=== PATIENT | female | born 1960 ===

== ENCOUNTER 2025-05-19 15:01 | Outpatient (AMB) | payer BC, SELFPAY ==
--- OUTSIDE RECORDS SUMMARY | 2025-05-19 17:10 | XMS_ITS | Clinical Summary ---
Author Organization 299 [facility] Address [address] [place] [address] Phone Care Team Providers Care Assistant Family Teacher Name Role Phone Andressa Johnson MD Primary Care Provider [phone] Social History Tobacco Use Types Packs/Day Years Used Date Smoking Tobacco: Never Assessed Comments No Sex and Gender Information Value Date Recorded Sex Assigned at Female 09/29/2024 10:16 AM EST Legal Sex Female 2:55 PM EST Gender Identity Female 09/29/2024 10:16 AM EST Sexual Orientation Straight 09/29/2024 10 :16 AM EST Obstetrics History Para Term AB IAB SAB Ectopic Multiple Livin g Live Births 3 Last Filed Vital Signs Vital Sign Reading Time Taken Comments Blood Pressure 137/84 11/05/2022 2:06 PM EST Sit ting R Arm Pulse 70 11/05/2022 2:06 PM EST Temperature - - Respiratory Rate - - Oxygen Saturation - - Inhaled Oxygen Concentration - - Weight 101 kg (223 lb) 10/17/2024 7:15 AM EST Height 175.3 cm (5' 9 ) 10/17/2024 7:15 AM EST Body Mass Index 32.93 10/17/2024 7:15 AM EST Plan of Treatment Health Maintenance Due Date Last Done Comments DTaP,Tdap,and Td Vaccines (1 - Tdap) 1979 Pneumococcal Vaccine: 50+ Years (1 of 1 - PCV) 2010 Zoster Vaccines (1 of 2) 2010 Colorectal Cancer Screening: Colonoscopy 08/15/2022 HIV Screening 08/15/2022 Hepatitis C Screening 08/15/2022 Social Influencers of Health Screening 08/15/2022 COVID-19 Vaccine ( - season) 2024 Depression Screening 09/16/2024 Influenza Vaccine (#1) 2025 Breast Cancer Screening 10/17/2026 10/17/19, 10/14/2023, 10/08/2022, Additional history exists Cervical Cancer Screening: Pap Smear 09/28/2027 09/28/2024 RSV Immunization Adult Patients (1 - 1-dose 75+ series) 2035 HIB Vaccines Aged Out No longer eligi ble based on patient's age to complete this topic HPV Vaccines Aged Out No longer eligi ble based on patient's age to complete this topic Hepatitis A Vaccines Aged Out No long er eligible based on patient's age to complete this topic Hepatitis B Vaccines Aged Out No long er eligible based on patient's age to complete this topic IPV Vaccines Aged Out No longer eligi ble based on patient's age to complete this topic MMR Vaccines Aged Out No longer eligi ble based on patient's age to complete this topic Meningococcal ACWY Vaccine Aged Out N o longer eligible based on patient's age to complete this topic Meningococcal B Vaccine Aged Out No l onger eligible based on patient's age to complete this topic RSV Immunization Patients Under 20 months Aged Out No longer eligible based on patient's age to complete this topic Varicella Vaccines Aged Out No longer eligible based on patient's age to complete this topic Procedures Procedure Name Priority Date/Time Associated Diagnosis Comments MG MAMMO DIGITAL SCREENING W EMERSON BILAT Routine 10/17/2024 7:22 AM EST Encounter for screening mammogram for malignant neoplasm of breast PAP SMEAR Routine 09/28/2024 12:00 AM EST Encounter for gynecological examination (general) (routine) without abnormal findings from Last 3 Months or Most Recently Relevant to Health Maintenance Results * MG Mammo Digital Screening w Emerson bilat (10/17/2024 7:22 AM EST) Anatomical Region Laterality Modality Breast Bilateral Mammography 10/19/2024 7:54 AM EST Impressions 10/19/2024 7:56 AM EST No evidence of breast malignancy. BI-RADS CATEGORY: 1 - NEGATIVE RECOMMENDATION: Screening bilateral mammogram is recommended in 1 year. Mammo Location: [facility], [address] [place] [address], [address], . -------- FINAL REPORT -------- Dictated By: Sulema Forbes Dictated Date: 10/19/2024 07:54 ET Assigned Physician: Sulema Forbes Reviewed and Electronically Signed By: Sulema Forbes Signed Date: 10/19/2024 07:56 ET Workstation ID: [id number] Transcribed By: Self Edit Transcribed Date: 10/19/2024 07:54 ET Narrative 10/19/2024 7:56 AM EST CLINICAL: 64 years old, Female, routine annual exam. COMPARISON: 10/12/2023, 10/06/2022, 09/30/2021, 08/28/2020 and 09/12/2019 TECHNIQUE: Bilateral MLO and CC views were obtained digitally with 3-D mammogram (digital breast tomosynthesis). Computer-aided detection was utilized in evaluation of this exam (CAD). FINDINGS: There is no evidence of suspicious mass or architectural distortion. No worrisome calcifications are evident. There has been no significant change from prior exam(s). BREAST DENSITY: B - There are scattered areas of fibroglandular density. Procedure Note Sulema Forbes MD - 10/19/2024 CLINICAL: 64 years old, Female, routine annual exam. COMPARISON: 10/12/2023, 10/06/2022, 09/30/2021, 08/28/2020 and 09/12/2019 TECHNIQUE: Bilateral MLO and CC views were obtained digitally with 3-Dmammogram (digital breast tomosynthesis). Computer-aided detection wasutilized in evaluation of this exam (CAD). FINDINGS: There is no evidence of suspicious mass or architectural distortion. Noworrisome calcifications are evident. There has been no significantchange from prior exam(s). BREAST DENSITY: B - There are scattered areas of fibroglandular density. IMPRESSION: No evidence of breast malignancy. BI-RADS CATEGORY: 1 - NEGATIVE RECOMMENDATION: Screening bilateral mammogram is recommended in 1 year. Mammo Location: [facility], [address] [place] [address], [address], . -------- FINAL REPORT -------- Dictated By: Sulema Forbes Dictated Date: 10/19/2024 07:54 ET Assigned Physician: Sulema Forbes Reviewed and Electronically Signed By: Sulema Forbes Signed Date: 10/19/2024 07:56 ET Workstation ID: [id number] Transcribed By: Self Edit Transcribed Date: 10/19/2024 07:54 ET us Koki Soria MD IMG BI PROCEDURES Final Result * Pap smear (09/28/2024 12:00 AM EST) Interpretation Negative for intraepithelial lesion or malignancy 10/02/2024 8:19 AM [facility] General Categorization Negative 10/02/2024 8:19 AM [facility] Other Findings Atrophy 10/02/2024 8:19 AM [facility] Specimen Adequacy Satisfactory for evaluation 10/02/2024 8:19 AM [facility] Pap Methodology Liquid Based Pap Test 10/02/2024 8:19 AM [facility] Disclaimer The Pap test is a screening test which carries an inherent false negative rate. These test results should be correlated with the patient's clinical findings and history. This Pap test was processed using an automated screening system. Technical cytopathology services provided by [facility], at [address] [place] [address], [place] [address] (CLIA # [id number]/Siva Douglas MD, Clerical Administrative Assistant.) 10/02/2024 8:19 AM [facility] Console Pap Interpretation Reported 10/02/2024 8:19 AM EST [facility] Brushing/Spatula Cervix uteri structure / Unknown 09/28/2024 09/29/2024 6:57 AM EST us Koki Soria MD LAB CYTOLOGY ORDERABLES Final Result [facility] [address] [place] [address], from Last 3 Months or Most Recently Relevant to Health Maintenance Insurance [facility] Care Teams Assistant Family Teacher Relationship Specialty Start Date End Date Andressa Johnson MD [address] [place] [address] PCP - General Internal Medicine 09/29/24
--- OUTSIDE RECORDS SUMMARY | 2025-05-19 17:10 | XMS_ITS | Encounter Summary ---
Author Organization [facility] Address [address] [place] [address] Care Team Providers Care Property Claims Adjuster Name Role Phone Andressa Johnson MD Primary Care Provider [phone] Encounter Details Date Type Department Care Team (Latest Contact Info) Description 09/29/2024 Lab Requisition [facility] - Main Lab [address] [place] [address] Koki Soria MD [address] [phone] Encounter for gynecological examination (general) (routine) without abnormal findings Social History Tobacco Use Types Packs/Day Years Used Date Smoking Tobacco: Never Assessed Comments Unknown Sex and Gender Information Value Date Recorded Sex Assigned at Female 09/29/2024 10:16 AM EST Legal Sex Female 2:55 PM EST Gender Identity Female 09/29/2024 10:16 AM EST Sexual Orientation Straight 09/29/2024 10 :16 AM EST documented as of this encounter Plan of Treatment Not on file documented as of this encounter Procedures Procedure Name Priority Date/Time Associated Diagnosis Comments PAP SMEAR Routine 09/28/2024 12:00 AM EST Encounter for gynecological examination (general) (routine) without abnormal findings documented in this encounter Results * Pap smear (09/28/2024 12:00 AM EST) Interpretation Negative for intraepithelial lesion or malignancy 10/02/2024 8:19 AM [facility] General Categorization Negative 10/02/2024 8:19 AM [facility] Other Findings Atrophy 10/02/2024 8:19 AM [facility] Specimen Adequacy Satisfactory for evaluation 10/02/2024 8:19 AM [facility] Pap Methodology Liquid Based Pap Test 10/02/2024 8:19 AM [facility] Disclaimer The Pap test is a screening test which carries an inherent false negative rate. These test results should be correlated with the patient's clinical findings and history. This Pap test was processed using an automated screening system. Technical cytopathology services provided by [facility], at [address] [place] [address] (CLIA # [id number]/Siva Douglas MD, Spiritual Minister.) 10/02/2024 8:19 AM [facility] Console Pap Interpretation Reported 10/02/2024 8:19 AM [facility] Brushing/Spatula Cervix uteri structure / Unknown 09/28/2024 09/29/2024 6:57 AM EST us Koki Soria MD LAB CYTOLOGY ORDERABLES Final Result [facility]) [facility] [address] [place] [address], documented in this encounter Visit Diagnoses Diagnosis Encounter for gynecological examination (general) (routine) without abnormal findings documented in this encounter Care Teams Property Claims Adjuster Relationship Specialty Start Date End Date Andressa Johnson MD [address] [place] [address] PCP - General Internal Medicine 09/29/24 documented as of this encounter
== END 2025-05-19 15:02 | disposition home or self-care (01) ==
LOC: HO.HMGAL 15:01
PROVIDERS: PCP Internal Medicine; Visit Provider Registered Nurse Emergency
DX: J30.89 Other allergic rhinitis (principal)
CPT/HCPCS: 95117; 95165

== ENCOUNTER 2025-06-23 13:54 | Outpatient (AMB) | payer BC, SELFPAY | END 2025-06-23 13:55 | disposition home or self-care (01) | LOC: HO.HMGAL 13:54 | PROVIDERS: PCP Internal Medicine; Visit Provider Registered Nurse Emergency | DX: J30.89 Other allergic rhinitis (principal) | CPT/HCPCS: 95117; 95165 ==

== ENCOUNTER 2025-07-21 16:09 | Outpatient (AMB) | payer BC, SELFPAY ==
--- OUTSIDE RECORDS SUMMARY | 2025-07-21 18:51 | XMS_ITS | Clinical Summary ---
Author Organization 299 [facility] Address [address] [place] [address] Phone Care Team Providers Care Protection Manager Name Role Phone Andressa Johnson MD Primary Care Provider [phone] Social History Tobacco Use Types Packs/Day Years [...] Health Maintenance Due Date Last Done Comments Colorectal Cancer Screening: Colonoscopy 1960 DTaP,Tdap,and Td Vaccines (1 - Tdap) 1979 Pneumococcal Vaccine: 50+ Years (1 of 1 - PCV) 2010 Zoster Vaccines (1 of 2) 2010 HIV Screening 08/15/2022 Hepatitis C Screening 08/15/2022 Social Influencers of Health Screening 08/15/2022 Depression Screening 09/16/2024 COVID-19 Vaccine (1 - 2023- season) 2025 Influenza Vaccine (#1) 2025 Breast Cancer Screening [...] year. Mammo Location: [facility], [address] [place] [address], [address], . -------- FINAL REPORT -------- Dictated By: Sulema Forbes Dictated Date: 10/19/2024 07:54 ET Assigned Physician: Sulema Forbes Reviewed and Electronically Signed By: Sulema Forbes Signed Date: 10/19/2024 07:56 ET Workstation ID: [id number] Transcribed By: Self Edit Transcribed Date: 10/19/2024 [...] year. Mammo Location: [facility], [address] [place] [address], [address], . -------- FINAL REPORT -------- Dictated By: Sulema Forbes Dictated Date: 10/19/2024 07:54 ET Assigned Physician: Sulema Forbes Reviewed and Electronically Signed By: Sulema Forbes Signed Date: 10/19/2024 07:56 ET Workstation ID: [id number] Transcribed By: Self Edit Transcribed Date: 10/19/2024 [...] screening system. Technical cytopathology services provided by [facility], at [address] [place] [address], [place] [address] (CLIA # [id number]/Siva Douglas MD, Family Resource Specialist.) 10/02/2024 8:19 AM [facility] Console Pap Interpretation Reported 10/02/2024 8:19 AM EST [facility] Brushing/Spatula Cervix uteri structure / Unknown 09/28/2024 09/29/2024 6:57 AM EST us Koki Soria MD LAB CYTOLOGY ORDERABLES Final Result [facility] [address] [place] [address], from Last 3 Months or Most Recently Relevant to Health Maintenance Insurance [facility] Care Teams Protection Manager Relationship Specialty Start Date End Date Andressa Johnson MD [address] [place] [address] PCP - General Internal Medicine 09/29/24
--- OUTSIDE RECORDS SUMMARY | 2025-07-21 18:51 | XMS_ITS | Encounter Summary ---
Author Organization [facility] Address [address] [place] [address] Care Team Providers Care Loan Operations Specialist Name Role Phone Andressa Johnson MD Primary Care Provider Encounter Details Date Type Department Care Team (Latest Contact Info) Description 09/29/2024 Lab Requisition [facility] - Main Lab [address] [place] [address] Koki Soria MD [address] [phone] Encounter for gynecological examination (general) (routine) without [...] intraepithelial lesion or malignancy 10/02/2024 8:19 AM [facility] General Categorization Negative 10/02/2024 8:19 AM [facility] Other Findings Atrophy 10/02/2024 8:19 AM [facility] Specimen Adequacy Satisfactory for evaluation 10/02/2024 8:19 AM [facility] Pap Methodology Liquid Based Pap Test 10/02/2024 8:19 AM [facility] Disclaimer The Pap test is a screening test which carries an inherent false negative rate. These test results should be correlated with the patient's clinical findings and history. This Pap test was processed using an automated screening system. Technical cytopathology services provided by [facility], at [address] [place] [id number] (CLIA # [id number]/Siva Douglas MD, Phlebotomy Coordinator.) 10/02/2024 8:19 AM [facility] Console Pap Interpretation Reported 10/02/2024 8:19 AM [facility] Brushing/Spatula Cervix uteri structure / Unknown 09/28/2024 09/29/2024 6:57 AM EST us Koki Soria MD LAB CYTOLOGY ORDERABLES Final Result [facility] [address] [place] [address], documented in this encounter Visit Diagnoses Diagnosis Encounter for gynecological examination (general) (routine) without abnormal findings documented in this encounter Care Teams Loan Operations Specialist Relationship Specialty Start Date End Date Andressa Johnson MD [address] [place] [address] PCP - General Internal Medicine 09/29/24 documented as of this encounter
== END 2025-07-21 16:10 | disposition home or self-care (01) ==
LOC: HO.HMGAL 16:09
PROVIDERS: PCP Internal Medicine; Visit Provider Registered Nurse Emergency
DX: J30.89 Other allergic rhinitis (principal)
CPT/HCPCS: 95117; 95165

== ENCOUNTER 2025-08-18 16:03 | Outpatient (AMB) | payer BC, SELFPAY ==
--- OUTSIDE RECORDS SUMMARY | 2025-08-18 18:49 | XMS_ITS | Clinical Summary ---
Author Organization 299 [facility] Address [address] [place] [address] Phone Care Team Providers Care Warehouse Team Leader Name Role Phone Andressa Johnson MD Primary Care Provider [phone] Social History Tobacco Use Types Packs/Day Years [...] 2010 Zoster Vaccines (1 of 2) 2010 Hepatitis C Screening 08/15/2022 Osteoporosis Screening (Bone Density Screening) 08/15/2022 Social Influencers of Health Screening 08/15/2022 Depression Screening 09/16/2024 COVID-19 Vaccine (1 - 2024- season) 2025 Influenza Vaccine (#1) 2025 Falls Risk Assessment 2025 Breast Cancer Screening 10/17/2026 10/17/19 25, 10/14/2023, 10/08/2022, Additional history exists Cervical Cancer [...] year. Mammo Location: [facility], [address] [place] [address], [address], . -------- FINAL REPORT -------- Dictated By: Sulema Forbes Dictated Date: 10/19/2024 07:54 ET Assigned Physician: Sulema Forbes Reviewed and Electronically Signed By: Sulema Forbes Signed Date: 10/19/2024 07:56 ET Workstation ID: [id number] Transcribed By: Self Edit Transcribed Date: 10/19/2024 [...] year. Mammo Location: [facility], [address] [place] [address], [address], . -------- FINAL REPORT -------- Dictated By: Sulema Forbes Dictated Date: 10/19/2024 07:54 ET Assigned Physician: Sulema Forbes Reviewed and Electronically Signed By: Sulema Forbes Signed Date: 10/19/2024 07:56 ET Workstation ID: [id number] Transcribed By: Self Edit Transcribed Date: 10/19/2024 07:54 ET us Koki Soria MD IMG BI PROCEDURES Final Result * Pap smear (09/28/2024 12:00 AM EST) Interpretation Negative for intraepithelial lesion or malignancy 10/02/2024 8:19 AM [facility] at 0819 EST General Categorization Negative 10/02/2024 8:19 AM [facility] Other Findings Atrophy 10/02/2024 8:19 AM [facility] Specimen Adequacy Satisfactory for evaluation 10/02/2024 8:19 AM [facility] Pap Methodology Liquid Based Pap Test 10/02/2024 8:19 AM [facility] Disclaimer The Pap test is a screening test which carries an inherent false negative rate. These test results should be correlated with the patient's clinical findings and history. This Pap test was processed using an automated screening system. Technical cytopathology services provided by [facility], at [address] [place] [address], [place] [address] (CLIA # [id number]/Siva Douglas MD, Trade Embalmer.) 10/02/2024 8:19 AM [facility] Console Pap Interpretation Reported 10/02/2024 8:19 AM EST [facility] Brushing/Spatula Cervix uteri structure / Unknown 09/28/2024 09/29/2024 6:57 AM EST us Koki Soria MD LAB CYTOLOGY ORDERABLES Final Result [facility] [address] [place] [address], from Last 3 Months or Most Recently Relevant to Health Maintenance Insurance [facility] Care Teams Warehouse Team Leader Relationship Specialty Start Date End Date Andressa Johnson MD [address] [place] [address] PCP - General Internal Medicine 09/29/24
--- OUTSIDE RECORDS SUMMARY | 2025-08-18 18:49 | XMS_ITS | Encounter Summary ---
Author Organization [facility] Address [address] [place] [address] Care Team Providers Care Crate Tier Name Role Phone Andressa Johnson MD Primary Care Provider [phone] Encounter Details Date Type Department Care Team (Latest Contact Info) Description 09/29/2024 Lab Requisition [facility] - Main Lab [address] [place] [address] Koki Soria MD [address] [phone] Encounter for gynecological examination (general) (routine) without [...] intraepithelial lesion or malignancy 10/02/2024 8:[address] [facility] at 0819 EST General Categorization Negative 10/02/2024 8:[address] [facility] Other Findings Atrophy 10/02/2024 8:[address] [facility] Specimen Adequacy Satisfactory for evaluation 10/02/2024 8:[address] [facility] Pap Methodology Liquid Based Pap Test 10/02/2024 8:[address] [facility] Disclaimer The Pap test is a screening test which carries an inherent false negative rate. These test results should be correlated with the patient's clinical findings and history. This Pap test was processed using an automated screening system. Technical cytopathology services provided by [facility], at [address] [place] [address] (CLIA # [id number]/Siva Douglas MD, Amr Physician.) 10/02/2024 8:[address] [facility] Console Pap Interpretation Reported 10/02/2024 8:[address] [facility] Brushing/Spatula Cervix uteri structure / Unknown 09/28/2024 09/29/2024 6:57 AM EST us Koki Soria MD LAB CYTOLOGY ORDERABLES Final Result [facility] [address] [place] [address], documented in this encounter Visit Diagnoses Diagnosis Encounter for gynecological examination (general) (routine) without abnormal findings documented in this encounter Care Teams Crate Tier Relationship Specialty Start Date End Date Andressa Johnson MD [address] [place] [address] PCP - General Internal Medicine 09/29/24 documented as of this encounter
== END 2025-08-18 16:03 | disposition home or self-care (01) ==
LOC: HO.HMGAL 16:03
PROVIDERS: PCP Internal Medicine; Visit Provider Registered Nurse Emergency
DX: J30.89 Other allergic rhinitis (principal)
CPT/HCPCS: 95117; 95165

== ENCOUNTER 2025-09-15 14:39 | Outpatient (AMB) | payer BC, SELFPAY ==
--- OUTSIDE RECORDS SUMMARY | 2025-09-15 15:44 | XMS_ITS | Encounter Summary ---
Author Organization [employer] Address [address] [place] [address] Care Team Providers Care Instructional Writer Name Role Phone Andressa Johnson MD Primary Care Provider [phone] Encounter Details Date Type Department Care Team (Latest Contact Info) Description 09/29/2024 Lab Requisition [facility] - Main Lab 299 [facility] [phone] Koki Soria MD 299 [facility] [address] [place] [phone] Encounter for gynecological examination (general) (routine) without [...] intraepithelial lesion or malignancy 10/02/2024 8:19 AM [facility] at 0819 EST General Categorization Negative 10/02/2024 8:19 AM [facility] Other Findings Atrophy 10/02/2024 8:19 AM [facility] Specimen Adequacy Satisfactory for evaluation 10/02/2024 8:19 AM [facility] Pap Methodology Liquid Based Pap Test 10/02/2024 8:19 AM [facility] Disclaimer The Pap test is a screening test which carries an inherent false negative rate. These test results should be correlated with the patient's clinical findings and history. This Pap test was processed using an automated screening system. Technical cytopathology services provided by [facility], at [address] [place] [address] (CLIA # [id number]/Siva Douglas MD, Boring Mill Operator For Metal.) 10/02/2024 8:19 AM [facility] Console Pap Interpretation Reported 10/02/2024 8:19 AM [facility] Brushing/Spatula Cervix uteri structure / Unknown 09/28/2024 09/29/2024 6:57 AM EST us Koki Soria MD LAB CYTOLOGY ORDERABLES Final Result [facility] [address] [place] [address], documented in this encounter Visit Diagnoses Diagnosis Encounter for gynecological examination (general) (routine) without abnormal findings documented in this encounter Care Teams Instructional Writer Relationship Specialty Start Date End Date Andressa Johnson MD [address] [place] [address] PCP - General Internal Medicine 09/29/24 documented as of this encounter
--- OUTSIDE RECORDS SUMMARY | 2025-09-15 15:44 | XMS_ITS | Encounter Summary ---
Author Organization [employer] Address [address] [place] [address] Care Team Providers Care Study Specialist Name Role Phone Andressa Johnson MD Primary Care Provider [phone] Reason for Visit * Reason Onset Date Comments special procedure 09/15/2025 Encounter Details Date Type Department Care Team ([facility] Contact Info) Description 09/15/2025 Telephone Gastroenterology - [place] [address] [facility] [address] [facility] [address] [place] [phone] Jayden Dsouza MD [address] [address] [place] [address] Social History Tobacco Use Types Packs/Day Years Used Date Smoking Tobacco: Never Assessed Comments No Sex and Gender Information Value Date Recorded Sex Assigned at Female 09/29/2024 10:16 AM EST Legal Sex Female 2:55 PM EST Gender Identity Female 09/29/2024 10:16 AM EST Sexual Orientation Straight 09/29/2024 10 :16 AM EST documented as of this encounter Progress Notes * Lady Gallegos - 09/15/2025 2:55 PM EST Records received from Dr Andressa Johnson ([facility]) for colonoscopy. Given to MA's to update allergies and med list. documented in this encounter Plan of Treatment Not on file documented as of this encounter Visit Diagnoses Not on filedocumented in this encounter Care Teams Study Specialist Relationship Specialty Start Date End Date Andressa Johnson MD [address] [place] [address] PCP - General Internal Medicine 09/29/24 documented as of this encounter
--- OUTSIDE RECORDS SUMMARY | 2025-09-15 15:44 | XMS_ITS | Clinical Summary ---
Author Organization [address] [facility] Address [address] [place] [phone] Phone Care Team Providers Care Humidifier Operator Name Role Phone Andressa Johnson MD Primary Care Provider [phone] Encounters Date Type Department Care Team Description 09/15/2025 Telephone Gastroenterology - [place] [address] [facility] [address] [facility] [address] [place] [phone] Jayden Dsouza MD from Last 3 Months Social History Tobacco Use Types Packs/Day Years [...] Depression Screening 09/16/2024 COVID-19 Vaccine (1 - season) 2025 Influenza Vaccine (#1) 2025 Falls Risk Assessment 2025 Breast Cancer Screening 10/17/2026 10/17/19, 10/14/2023, [...] year. Mammo Location: [facility], [address] [place] [address], [id number], . -------- FINAL REPORT -------- Dictated By: Sulema Forbes Dictated Date: 10/19/2024 07:54 ET Assigned Physician: Sulema Forbes Reviewed and Electronically Signed By: Sulema Forbes Signed Date: 10/19/2024 07:56 ET Workstation ID: [id number] Transcribed By: Self Edit Transcribed Date: 10/19/2024 [...] year. Mammo Location: [facility], [address] [place] [address], [id number], . -------- FINAL REPORT -------- Dictated By: Sulema Forbes Dictated Date: 10/19/2024 07:54 ET Assigned Physician: Sulema Forbes Reviewed and Electronically Signed By: Sulema Forbes Signed Date: 10/19/2024 07:56 ET Workstation ID: [id number] Transcribed By: Self Edit Transcribed Date: 10/19/2024 07:54 ET us Koki Soria MD IMG BI PROCEDURES Final Result * Pap smear (09/28/2024 12:00 AM EST) Interpretation Negative for intraepithelial lesion or malignancy 10/02/2024 8:19 AM [facility] at 0819 EST General Categorization Negative 10/02/2024 8:19 AM EST [facility] Other Findings Atrophy 10/02/2024 8:19 AM [facility] Specimen Adequacy Satisfactory for evaluation 10/02/2024 8:19 AM EST [facility] Pap Methodology Liquid Based Pap Test 10/02/2024 8:19 AM [facility] Disclaimer The Pap test is a screening test which carries an inherent false negative rate. These test results should be correlated with the patient's clinical findings and history. This Pap test was processed using an automated screening system. Technical cytopathology services provided by [facility], at [address] [place] [id number] (CLIA # [id number]/Siva Douglas MD, Geophysicist.) 10/02/2024 8:19 AM EST [facility] Console Pap Interpretation Reported 10/02/2024 8:19 AM EST [facility] Brushing/Spatula Cervix uteri structure / Unknown 09/28/2024 09/29/2024 6:57 AM EST us Koki Soria MD LAB CYTOLOGY ORDERABLES Final Result [facility] ([facility] [address] [place] [address], from Last 3 Months or Most Recently Relevant to Health Maintenance Insurance [facility] Care Teams Humidifier Operator Relationship Specialty Start Date End Date Andressa Johnson MD [address] [place] [address] PCP - General Internal Medicine 09/29/24
== END 2025-09-15 14:40 | disposition home or self-care (01) ==
LOC: HO.HMGAL 14:39
PROVIDERS: PCP Internal Medicine; Visit Provider Registered Nurse Emergency
DX: J30.89 Other allergic rhinitis (principal)
CPT/HCPCS: 95117; 95165